=== PATIENT | male | born 1970 | race Caucasian/White ===

== ENCOUNTER 2024-07-04 02:47 | Emergency (ER) | payer BC, SELFPAY ==
[2024-07-04 02:52] VITALS: BP 123/78; BMI 27.6
[2024-07-04 03:00] VITALS: BP 127/78
[2024-07-04] MEDS: NSS 1000 IV ×2 (03:01→04:46)
[2024-07-04] MEDS: ZOFRAN 4 MG IV (03:01)
[2024-07-04 03:13] LABS: % Basophils 0.2 % (0-2); % Eosinophils 0.9 % (0-6); % Immature Granulocytes 0.3 % (0-0.5); % Lymphocytes 6.7 % (20.5-51.1); % Monocytes 4.1 % (1.7-9.3); % Neutrophils 87.8 % (42.2-75.2); Absolute Eosinophils 0.1 10^3/uL (0-0.7); Absolute Lymphocytes 0.8 10^3/uL (1.2-3.4); Absolute Monocytes 0.5 10^3/uL (0.1-0.6); Absolute Neutrophils 10.2 10^3/uL (1.4-6.5); Hematocrit 40.6 % (39.0-52.0); Hemoglobin 14.4 g/dL (13.0-18.0); Mean Corp Hgb Conc. 35.5 g/dL (33.0-37.0); Mean Corpuscular Hgb 29.7 pg (27.0-31.0); Mean Corpuscular Volume 83.7 fL (80.0-94.0); Mean Platelet Volume 10.1 fL (7.4-10.4); Nucleated Red Blood Cells % 0 % (-); Platelet Count 211 10^3/uL (130-400); Red Blood Cell Count 4.85 10^6/uL (4.70-6.10); Red Cell Dist. Width 12.7 % (11.5-14.5); White Blood Cell Count 11.6 10^3/uL (4.8-10.8)
[2024-07-04 03:41] LABS: ALT (SGPT) 41 U/L (0-50); AST (SGOT) 37 U/L (17-59); Albumin 4.9 g/dl (3.5-5.0); Alkaline Phosphatase 70 U/L (38-126); Blood Urea Nitrogen 19 mg/dl (9-20); Calcium 9.5 mg/dl (8.4-10.2); Carbon Dioxide 26 mmol/L (22-30); Chloride 103 mmol/L (98-107); Estimated Creatinine Clearance 83 ml/min; Glucose 104 mg/dl (70-99); Potassium 3.9 mmol/L (3.5-5.1); Sodium 144 mmol/L (135-145); Total Bilirubin 0.5 mg/dl (0.2-1.3); Total Protein 7.1 g/dl (6.3-8.2); eGFR > 60.00
[2024-07-04 03:45] LABS: Troponin I < 0.012 ng/ml
--- NOTE | 2024-07-04 03:52 | ED.GENMED ---
History of Present Illness
<HILARY Romero - Last Filed: 07/04/24 04:04>
General
Chief Complaint: Fainting Sensation
Source: patient and spouse
Exam Limitations: none
Time Seen by Provider: 07/04/24 03:28
Nursing documentation reviewed up to this point in time: agreed with
History of Present Illness
History of Present Illness:
Pt is a 53 y/o M who arrives via EMS after 2 episodes of syncope while in the bathroom. The pt reported that he got up to urinate at about 1:40 AM and was diaphoretic and fainted. When he came to, he felt that he had to defecate and fainted a second
time and was incontinent of diarrhea. The pt stated that he hit his head at least once during this incident and had complaints of neck pain. The pt currently has complaints of nausea, lightheadedness, and fatigue. He reported that he had Chipotle
for dinner and 1 martini afterwards. Denies any vomiting, chest pain, SOB, fever, any changes in urination or bowel movements, abdominal pain.
The pt has a prior history of syncope when he had Covid in 2021. He also reported some episodes of lightheadedness when getting up from a seated position in the past.
Past History
<HILARY Romero - Last Filed: 07/04/24 04:04>
Past History
ED Past Medical History: None
ED Past Surgical History: Orthopedic
Social History
Tobacco: Non-smoker
Alcohol: Occasional
Drug: None
Personal:
Living: with family
Review of Systems
<HILARY Romero - Last Filed: 07/04/24 04:04>
Review of Systems
Constitutional: Reports fatigue
EENT: Reports no symptoms
Respiratory: Reports no symptoms
Cardiac: Reports diaphoresis and syncope
ABD/GI: Reports nausea
: Reports no symptoms
Musculoskeletal: Reports neck pain
Skin: Reports no symptoms
Neurological: Reports dizzy and weakness
Endocrine: Reports no symptoms
Hematologic/Lymphatic: Reports no symptoms
Psychiatric: Reports no symptoms
Phy Exam
<HILARY Romero - Last Filed: 07/04/24 04:04>
General Physical Exam
General Presentation: moderate distress
General age: appears stated age
General Skin: warm and dry
General Habitus: normal
General Mental: alert
General Hydration: appears well hydrated
ENT Exam
ENT Exam: neck supple and normocephalic
Eye Exam
Eye Exam: cornea clear and conjunctiva normal
Cardiovascular Exam
Cardiovascular Exam: regular rate/rhythm, no edema and normal peripheral pulses
Pulmonary Exam
Pulmonary Exam: lungs clear, no respiratory distress, no rales, chest non tender, no crackles, no rhonchi, no stridor, no wheezing and no cough
Gastrointestinal Exam
Gastrointestinal Exam: normal bowel sounds, non tender, soft and non distended
Neurological Exam
Neurological Exam: alert, oriented x3, no motor deficits, no sensory deficits and speech normal
Musculoskeletal Exam
Musculoskeletal Exam: full ROM, neck pain and no edema
Skin Exam
Skin Exam: normal color and warm/dry
Psychiatric Exam
Psychiatric Exam: normal mood/affect
Course
<HILARY Romero - Last Filed: 07/04/24 04:04>
Orders/Labs/Results
Orders:
Orders
07/04/24 02:50
Electrocardiogram (*1) Urgent
Reason for Study: Syncope
CT Head W/o Iv Contrast Urgent
Comment:
Reason For Exam: fall with headstrike, +LOC
Cervical Spine wo Contrast CT [CT Cervical Spine W/o Iv Contr] Urgent
Comment:
Reason For Exam: fall with headstrike, +LOC
07/04/24 02:51
EKG- Treatment ONCE
07/04/24 02:57
Complete Blood Count/With Diff Urgent
Comprehensive Metabolic Panel Urgent
Troponin I Urgent
07/04/24 02:58
Ondansetron Injectable [Zofran] 4 mg .ROUTE .STK-MED ONE
07/04/24 02:59
Ondansetron Injectable [Zofran] 4 mg IV NOW STA
07/04/24 03:01
0.9% Sodium Chloride 1000 ml [Nss] 1,000 ml IV BOLUS
07/04/24 04:15
0.9% Sodium Chloride 1000 ml [Nss] 1,000 ml IV BOLUS
07/04/24 04:37
Lactic Acid Urgent
Blood Culture Urgent
VIVIANA Source: Blood/Venous
Specimen Description:
07/04/24 04:48
Troponin I Urgent
Blood Culture Routine
VIVIANA Source: Blood/Venous
Specimen Description:
07/04/24 05:37
Orthostatic VS- Treatment ONCE
07/04/24 06:31
Acetaminophen [Tylenol] 1,000 mg .ROUTE .STK-MED ONE
07/04/24 06:34
Acetaminophen [Tylenol] 1,000 mg PO NOW STA
Abnormal Lab Results
07/04/24
02:57
WBC 11.6 H 10^3/uL
(4.8-10.8)
Absolute Neuts (auto) 10.2 H 10^3/uL
(1.4-6.5)
Absolute Lymphs (auto) 0.8 L 10^3/uL
(1.2-3.4)
Neutrophils % 87.8 H %
(42.2-75.2)
Lymphocytes % 6.7 L %
(20.5-51.1)
Glucose 104 H mg/dl
(70-99)
07/04/24 02:57
07/04/24 02:57
Vital Signs
Initial and Last Documented VS:
Initial Vital Signs
Temp Pulse Resp BP Pulse Ox
98.0 F 72 14 123/78 99
07/04/24 02:52 07/04/24 02:52 07/04/24 02:52 07/04/24 02:52 07/04/24 02:52
Last Documented Vital Signs
Temp Pulse Resp BP Pulse Ox
99.7 F 81 19 117/69 98
07/04/24 06:20 07/04/24 06:19 07/04/24 06:19 07/04/24 05:00 07/04/24 06:19
<Arianne Crum, DO - Last Filed: 07/04/24 07:21>
Orders/Labs/Results
Orders:
Orders
07/04/24 02:50
Electrocardiogram (*1) Urgent
Reason for Study: Syncope
CT Head W/o Iv Contrast Urgent
Comment:
Reason For Exam: fall with headstrike, +LOC
Cervical Spine wo Contrast CT [CT Cervical Spine W/o Iv Contr] Urgent
Comment:
Reason For Exam: fall with headstrike, +LOC
07/04/24 02:51
EKG- Treatment ONCE
07/04/24 02:57
Complete Blood Count/With Diff Urgent
Comprehensive Metabolic Panel Urgent
Troponin I Urgent
07/04/24 02:58
Ondansetron Injectable [Zofran] 4 mg .ROUTE .STK-MED ONE
07/04/24 02:59
Ondansetron Injectable [Zofran] 4 mg IV NOW STA
07/04/24 03:01
0.9% Sodium Chloride 1000 ml [Nss] 1,000 ml IV BOLUS
07/04/24 04:15
0.9% Sodium Chloride 1000 ml [Nss] 1,000 ml IV BOLUS
07/04/24 04:37
Lactic Acid Urgent
Blood Culture Urgent
VIVIANA Source: Blood/Venous
Specimen Description:
07/04/24 04:48
Troponin I Urgent
Blood Culture Routine
VIVIANA Source: Blood/Venous
Specimen Description:
07/04/24 05:37
Orthostatic VS- Treatment ONCE
07/04/24 06:31
Acetaminophen [Tylenol] 1,000 mg .ROUTE .STK-MED ONE
07/04/24 06:34
Acetaminophen [Tylenol] 1,000 mg PO NOW STA
Abnormal Lab Results
07/04/24
02:57
WBC 11.6 H 10^3/uL
(4.8-10.8)
Absolute Neuts (auto) 10.2 H 10^3/uL
(1.4-6.5)
Absolute Lymphs (auto) 0.8 L 10^3/uL
(1.2-3.4)
Neutrophils % 87.8 H %
(42.2-75.2)
Lymphocytes % 6.7 L %
(20.5-51.1)
Glucose 104 H mg/dl
(70-99)
07/04/24 02:57
07/04/24 02:57
Vital Signs
Temp: 99.7 F
Initial and Last Documented VS:
Initial Vital Signs
Temp Pulse Resp BP Pulse Ox
98.0 F 72 14 123/78 99
07/04/24 02:52 07/04/24 02:52 07/04/24 02:52 07/04/24 02:52 07/04/24 02:52
Last Documented Vital Signs
Temp Pulse Resp BP Pulse Ox
99.7 F 81 19 117/69 98
07/04/24 06:20 07/04/24 06:19 07/04/24 06:19 07/04/24 05:00 07/04/24 06:19
<HILARY Romero - Last Filed: 07/04/24 04:04>
MDM/Problems Addressed
Differential Diagnosis Includes:
Orthostatic hypotension
Gastroenteritis
Hypoglycemia
<HILARY Romero - Last Filed: 07/04/24 04:04>
*Critical Care Note
Total Time (30-74mins, 75-104mins- exclusive of procedures): Not Applicable
<Arianne Crum DO - Last Filed: 07/04/24 07:21>
*Radiology
Radiology exam reviewed: radiology read reviewed
*Pulse Oximetry
Patient hypoxic: no
*EKG
Interpreted by ED Provider?: Yes
Comparison EKG: no changes (Unchanged from previous June 2019)
Rate: normal
Rhythm: sinus
[place]: normal axis
Interval: normal interval (Borderline first-degree AV block, similar and unchanged from previous)
QRS Pattern: normal QRS
Ischemia: no ischemia
*Customer Contact Representative Interpretation
Rate: normal
Interpretation: normal
Rhythm: sinus
ED Attending Note
<HILARY Romero - Last Filed: 07/04/24 04:04>
-
Portions of this chart may have been created with voice recognition software.� Occasional wrong word or��sound alike� substitutions may have occurred due to the inherent limitations of voice recognition software.
<Arianne Crum DO - Last Filed: 07/04/24 07:21>
ED Attending Note
Patient seen and examined by attending physician: Yes
I performed the substantive portion of visit, reviewed & personally made and approve the management plan that is documented in note by myself or GO.: Yes
ED Attending Note:
This is a 53-year-old gentleman who has no significant past medical history save for isolated episode of pneumococcal sepsis 2017. Hospitalized for several days here with prodrome of several day history of high fever, fatigue without any other
associated symptoms. No definitive source of pneumococcal bacteremia but responded well with antibiotics and no history of recurrence.
He takes no medicines on a daily basis.
He does admit to some chronic fatigue and chronic difficulty with sleeping and tonight ate Chipotle for dinner which is unlike him. Went to bed uneventfully but then awoke shortly after 2 AM and initially had mild headache and felt that he had to
get up out of bed to urinate. Upon doing so he immediately became lightheaded and passed out. Brief loss of consciousness and upon waking he then felt the need to pass a bowel movement, had recurrent lightheadedness with sitting up requiring him
to crawl into the bathroom and with attempt at getting up he passed out again and proceeded to pass a large liquid nonbloody stool.
states she heard initial thud when he got up out of bed and then noticed he was crawling into the bathroom and then heard another thought when he passed out against the door. She had initial difficulty opening the door but upon doing so found
her incontinent of large amount of stool, awake but lethargic, pale and diaphoretic.
No recurrent syncope but noted to be hypotensive prehospital with systolic blood pressure dropping to 80 with sitting up.
He admits to nausea but has had no vomiting. No other modes of diarrhea and he denies abdominal pain. He does admit to mild generalized headache and mild posterior neck pain but no radiation of pain, no weakness nor numbness, no back pain, no
extremity pain.
He has history of 1 previous episode of syncope accompanied with COVID URI 2021.
He denies palpitations nor chest pain. Denies a sense of dizziness nor spinning.
No recent travel nor recent antibiotic use. No close contacts with similar symptoms.
GENERAL: 53-year-old gentleman appears his stated age, awake and alert, pleasant, appears in no acute distress. is accompanying.
EYE: The head is normocephalic, atraumatic. Pupils equal and reactive. Extraocular muscles intact. Anicteric
NECK: Supple, no midline bony tenderness, no meningismus, no significant adenopathy.
ENT: posterior pharynx is clear, oral mucosa is moist. TM clear b/l, nares patent.
CARDIAC: Regular rate and rhythm. no murmur. No chest wall tenderness.
LUNGS: Clear breath sounds bilaterally, no acute respiratory distress, no wheezes/rales/rhonchi
ABDOMEN: Soft, nondistended, without focal tenderness, no r/g, no cvat. normoactive BS.
BACK: Patient sit up without difficulty. No midline bony tenderness.
NEUROLOGICAL: Alert and oriented x3, no focal neuro deficits. Motor strength is 5/5 bilaterally. Gross sensation is intact.
SKIN: Warm and dry, normal color, skin intact. No rash.
MUSCULOSKELETAL: No C/C/E. peripheral pulses are full and equal b/l. No palpable tenderness.
PSYCH: Normal and appropriate interaction.
History most consistent with vasovagal syncope, must consider acute tachy-arrhythmia, acute gastroenteritis either viral versus foodborne.
No recent fever nor chills but upon my initial evaluation oral temperature 98.9 �F. Concern for onset of low-grade fever and with prior history of sepsis will check lactic acid orders.
EKG shows normal sinus rhythm, first-degree AV block, otherwise unremarkable and unchanged from previous June 2019.
Labs are pending as is CT of the head and C-spine.
Will continue IV fluids and plan for orthostatic vital signs.
07/04/2024 0619 AM
Patient feeling improved, has had no return of nausea, no return of diarrhea and continues to deny abdominal pain.
He remains hemodynamically stable, monitor shows normal sinus rhythm.
Labs show minimally elevated white blood cell count otherwise unremarkable.
Troponin x 2 is negative.
Lactic acid is normal.
He is noted to have low-grade fever upon recheck 99.7 �F.
Will check orthostatic vital signs and will trial oral fluids.
Blood cultures are pending.
07/04/2024 0720 AM
Patient tolerating oral fluids as well as an oral dose of Tylenol.
Resting comfortably.
Will discharge to home with prescription for Zofran and recommendations that he limit his diet to clear liquids over the next 12 to 24 hours then slowly advance as tolerated. Continue Tylenol as needed for fever, aches.
May take Imodium for as needed diarrhea.
Prompt follow-up with PCP for recheck.
Return precautions discussed.
Discharge Plan
Departure
Patient Disposition: Home (Routine Discharge)
Date of Disposition: 07/04/24
Time of Disposition: 07:04
Patient with high blood pressure during this ER visit?: No
Condition: Good
Discharge Problem:
acute vasovagal syncope, Acute gastroenteritis
Instructions: Food poisoning, Viral gastroenteritis in adults, Vasovagal Response (DC)
Prescriptions:
New
ondansetron 4 mg tablet,disintegrating
4 mg PO QID PRN (Reason: nausea and vomiting) Qty: 20 0RF
No Action
clobetasol-emollient 15 GM cream
15 gm TP DAILY
multivitamin with folic acid [Tab-A-Shay] 1 TABLET tablet
1 tab PO DAILY
L.acidoph, paracasei,B. lactis 1 EACH capsule
1 ea PO DAILY
Referrals:
Oj Limon MD [Family Provider] - Call in 1-3 days for appt
Interventions
Interventions:
*Risk Screen - Suicide Last Done: 07/04/24 02:52
*General Assessment Last Done: 07/04/24 02:52
*Neglect/Abuse Screening Last Done: 07/04/24 02:52
*ED COVID-19 Vaccine History Last Done: 07/04/24 02:52
ED- Cardiac Assessment Last Done: 07/04/24 03:00
ED- Neurological Assessment Last Done: 07/04/24 03:00
Discharge Date and Time
Print Language: [id number]
[2024-07-04 04:00] VITALS: BP 118/75
[2024-07-04 05:00] VITALS: BP 117/69
[2024-07-04 05:00] LABS: Lactic Acid 1.1 mmol/L (0.7-2.0)
[2024-07-04 05:18] LABS: Troponin I < 0.012 ng/ml
[2024-07-04 06:23] VITALS: BP 109/70; BP 120/67; BP 97/64; PULSE 81; PULSE 88; PULSE 89
[2024-07-04] MEDS: TYLENOL 1000 MG PO (06:34)
[2024-07-04 07:00] VITALS: BP 110/67
== END 2024-07-04 07:53 | disposition home or self-care (01) ==
LOC: EMR 02:47
PROVIDERS: EMERGENCY PHYSICIAN Emergency Medicine; FAMILY PHYSICIAN Family Medicine
DX: R55 Syncope and collapse (principal); K52.9 Noninfective gastroenteritis and colitis, unspecified; W19.XXXA Unspecified fall, initial encounter
CPT/HCPCS: 99285; 96374; 96361 ×2; 70450; 72125; 80053; 83605; 84484; 85025; 87040; 93005